=== PATIENT | female | born 1980 | race Asian ===

== ENCOUNTER 2016-04-09 04:30 | Inpatient (IN) | payer SELFPAY ==
[~2016-04-09] VITALS: Ht 162.6 cm; Wt 99.8 kg
[2016-04-09] MEDS ORDERED: OXYTOCIN 20 UNITS/LR PREMIX 1,000 ML IV SCH (04:49)
[2016-04-09] MEDS ORDERED: LACTATED RINGERS 1,000 ML IV SCH (04:49)
[2016-04-09] MEDS ORDERED: CITRIC ACID/SODIUM CITRATE 30 ML UDC PO SCH (04:50)
[2016-04-09] MEDS ORDERED: OXYTOCIN 10 UNITS/ML VIAL IM SCH (04:50)
[2016-04-09 05:30] VITALS: BP 127/77
[2016-04-09] MEDS ORDERED: CLINDAMYCIN 900 MG in DEXTROSE 5% 100 ML IV SCH (05:40)
[2016-04-09] MEDS ORDERED: INFLUENZA VIRUS VACCINE QUAD 0.5 ML SYR IMVAC SCH (06:40)
[2016-04-09] MEDS ORDERED: OXYTOCIN 10 UNITS/ML VIAL ONE ×2 (07:29→08:05)
[2016-04-09] MEDS ORDERED: TRIAMCINOLONE 40 MG/ML 5ML VIAL ONE (07:29)
[2016-04-09] MEDS ORDERED: ePHEDrine 50 MG/ML VIAL ONE (08:05)
[2016-04-09] MEDS ORDERED: BUPIVACAINE-MPF 0.75% 10 ML VIAL INJ ONE (08:05)
[2016-04-09] MEDS ORDERED: CITRIC ACID/SODIUM CITRATE 30 ML UDC PO ONE (08:10)
[2016-04-09] MEDS ORDERED: MORPHINE PRES FREE 10 MG/10 ML AMP IV ONE (08:12)
[2016-04-09] MEDS ORDERED: fentaNYL 0.05 MG/ML VIAL ONE (08:12)
[2016-04-09] MEDS ORDERED: MEASLES, MUMPS, AND RUBELLA 1 VIAL SQVAC PRN (08:20)
[2016-04-09] MEDS ORDERED: TEMAZEPAM 15 MG CAP PO PRN (08:20)
[2016-04-09] MEDS ORDERED: IBUPROFEN 800 MG TAB PO PRN (08:20)
[2016-04-09] MEDS ORDERED: SIMETHICONE 80 MG TAB.CHEW PO PRN (08:20)
[2016-04-09] MEDS ORDERED: METHYLERGONOVINE 0.2 MG/ML AMP IM PRN (08:20)
[2016-04-09] MEDS ORDERED: oxyCODONE/APAP 5/325 MG 1 TAB TAB PO PRN (08:20)
[2016-04-09] MEDS ORDERED: TRIMETHOBENZAMIDE 200 MG/2 ML SYR IM PRN (08:20)
[2016-04-09] MEDS ORDERED: ONDANSETRON 4 MG/2 ML VIAL IVP PRN (08:35)
[2016-04-09] MEDS ORDERED: NALBUPHINE 10 MG/ML AMP IVP PRN (08:35)
[2016-04-09] MEDS ORDERED: NALOXONE 0.4 MG/ML VIAL IVP PRN ×3 (08:35)
[2016-04-09] MEDS ORDERED: KETOROLAC 60 MG/2 ML VIAL IM PRN (08:35)
[2016-04-09] MEDS ORDERED: diphenhydrAMINE 50 MG/ML VIAL IVP PRN (08:35)
[2016-04-09] MEDS ORDERED: OXYTOCIN 20 UNITS/LR PREMIX 1,000 ML IV ONE (09:07)
[2016-04-09] MEDS ORDERED: diphenhydrAMINE 50 MG/ML VIAL ONE (09:07)
[2016-04-09] MEDS ORDERED: ONDANSETRON 4 MG/2 ML VIAL ONE (09:08)
[2016-04-09] MEDS ORDERED: KETOROLAC 30 MG/ML VIAL IM/IVP PRN (10:35)
[2016-04-09] MEDS: OXYTOCIN 20 UNITS/LR PREMIX 1,000 ML IV SCH (17:10)
[2016-04-09] MEDS: DOCUSATE SOD/SENNA 50/8.6 MG 1 TAB PO SCH (20:53)
[2016-04-10] MEDS: OXYTOCIN 20 UNITS/LR PREMIX 1,000 ML IV SCH (01:13)
[2016-04-10] MEDS ORDERED: OXYTOCIN 20 UNITS/LR PREMIX 1,000 ML IV SCH (04:49)
[2016-04-10] MEDS: HYDROcodone/APAP 5/325 MG 1 TAB TAB PO PRN (11:41)
[2016-04-10] MEDS: DOCUSATE SOD/SENNA 50/8.6 MG 1 TAB PO SCH (21:17)
[2016-04-11] MEDS: HYDROcodone/APAP 5/325 MG 1 TAB TAB PO PRN ×3 (00:11→20:05)
[2016-04-11] MEDS: DOCUSATE SOD/SENNA 50/8.6 MG 1 TAB PO SCH (20:05)
== END 2016-04-12 15:20 | disposition home or self-care (01) | DRG 766 ==
LOC: MLD 04:30 → MFCC 09:12
PROVIDERS: ADMIT Obstetrics & Gynecology; ATTEND Obstetrics & Gynecology
PROC: 10D00Z1 Extraction of Products of Conception, Low, Open Approach (ICD-10-PCS; principal; 2016-04-09 08:00)
DX: O34.211 Maternal care for low transverse scar from previous cesarean delivery (principal); Z37.0 Single live birth; Z3A.39 39 weeks gestation of pregnancy; O09.523 Supervision of elderly multigravida, third trimester; Z88.0 Allergy status to penicillin; Z82.49 Family history of ischemic heart disease and other diseases of the circulatory system